=== PATIENT | female | born 1975 | race Caucasian/White ===

== ENCOUNTER 2021-05-15 09:25 | Outpatient (CLI) | payer BC, SELFPAY ==
[2021-05-15 10:20] LABS: Basophils Percent Auto 0.7 % (0.2-1.2); Eosinophils Absolute Auto 0.4 K/mm3 (0-0.3); Eosinophils Percent Auto 6.6 % (0-4.4); Hematocrit 38.5 % (37.0-47.0); Hemoglobin 12.5 g/dL (12.0-15.0); Immature Granulocyte Absolute 0.01 K/mm3 (0.00-0.031); Immature Granulocyte Percent A 0.2 % (0-0.5); Lymphocytes Absolute Auto 1.64 K/mm3 (0.9-3.2); Lymphocytes Percent Auto 27.9 % (18.3-44.2); Mean Corpuscular HGB Conc 32.5 g/dl (32-36); Mean Corpuscular Hemoglobin 29.5 pg (26-34); Mean Corpuscular Volume 90.8 fl (80-100); Mean Platelet Volume 9.5 fl (7.4-10.4); Monocytes Absolute Auto 0.5 K/mm3 (0.1-0.6); Neutrophils Absolute Auto 3.3 K/mm3 (1.3-6.7); Neutrophils Percent Auto 56.6 % (45.5-73.1); Platelet Count Result 236 k/mm3 (150-375); Red Blood Count 4.24 M/mm3 (4.2-5.4); Red Cell Distribution Width 13.4 % (11.5-14.5); White Blood Count 5.9 K/mm3 (4.5-10.0)
[2021-05-15 10:27] LABS: Alanine Aminotransferase 31 U/L (4-35); Albumin Level 4.2 g/dL (3.5-5.1); Alkaline Phosphatase 80 U/L (38-126); Anion Gap 8 mmol/L (8-16); Aspartate Amino Transferase 30 U/L (14-36); Bilirubin,Total 0.5 mg/dL (0.2-1.3); Blood Urea Nitrogen 11 mg/dL (7-17); Calcium 9.1 mg/dL (8.4-10.2); Carbon Dioxide 25 mmol/L (22-30); Chloride 106 mmol/L (98-107); Cholesterol 191 mg/dL (0-200); Estimated Glomerular Filt Rate > 60; Glucose 94 mg/dL (65-105); HDL Direct 42 mg/dL; Potassium 4.5 mmol/L (3.4-5.0); Sodium 139 mmol/L (137-145); Triglycerides 119 mg/dL (<150)
[2021-05-15 10:37] LABS: LDL Cholesterol Direct 116 mg/dL
[2021-05-15 11:37] LABS: Vitamin D 25 Hydroxy 33.5 ng/mL
== END 2021-05-15 09:26 | disposition home or self-care (01) ==
PROVIDERS: PCP Internal Medicine; Visit Provider Nurse Practitioner
DX: Z13.29 Encounter for screening for other suspected endocrine disorder (principal); Z13.220 Encounter for screening for lipoid disorders; E55.9 Vitamin D deficiency, unspecified
CPT/HCPCS: 36415; 80053; 80061; 82306; 85025

== ENCOUNTER 2021-07-16 17:23 | Outpatient (CLI) | payer BC, SELFPAY ==
--- NOTE | ~2021-07-16 | MM_ITS ---
EXAMINATION: MM screening keyona BI w janny HISTORY: Screening TECHNIQUE: Craniocaudal and mediolateral oblique 3-D tomosynthesis images were obtained and synthetic 2-D images were generated. CAD analysis was submitted and interpreted. COMPARISON: No prior mammogram is available for comparison at this institution. BREAST PARENCHYMAL COMPOSITION: The breasts are heterogeneously dense, which may obscure small masses . FINDINGS: There is no evidence of suspicious mass, calcification, or architectural distortion to sugg est malignancy in either breast. There has been no suspicious interval change. IMPRESSION: 1. No mammographic evidence of malignancy. 2. Recommend routine screening mammography in one year. BI-RADS Category 1: Negative Reviewed, dictated and finalized at location A.
== END 2021-07-16 17:24 | disposition home or self-care (01) ==
LOC: ANHIMG 17:25
PROVIDERS: PCP Internal Medicine; Visit Provider Nurse Practitioner
DX: Z12.31 Encounter for screening mammogram for malignant neoplasm of breast (principal)
CPT/HCPCS: 77063; 77067

== ENCOUNTER 2022-06-19 11:20 | Outpatient (CLI) | payer OTHER, SELFPAY ==
--- NOTE | ~2022-06-19 | MMUS_ITS ---
EXAMINATION: MM diagnostic keyona BI w janny, US breast LT limited HISTORY: Palpable left breast abnormality. TECHNIQUE: Additional 3-D tomosynthesis images of the breasts were performed and synthetic 2-D images were generated. CAD analysis was submitted and interpreted. High resolution Limited left breast ultr asound was performed. COMPARISON: 07/16/2021 BREAST PARENCHYMAL COMPOSITION: The breasts are heterogenously dense, which may obscure small masses FINDINGS: MAMMOGRAPHIC FINDINGS: There are no suspicious masses, calcifications or architectural distortion in either breast to sugges t malignancy. ULTRASOUND: Limited left breast ultrasound: Normal heterogeneous echotexture without focal solid or cystic mass. IMPRESSION: 1. No evidence for malignancy in either breast. 2. Routine yearly screening mammogram and regular clinical breast examination are recommended. BI-RADS Category 1: Negative Reviewed, dictated and finalized at location A. IMPRESSION: 1. No evidence for malignancy in either breast. 2. Routine yearly screening mammogram and regular clinical breast examination a re recommended. BI-RADS Category 1: Negative
== END 2022-06-19 11:21 | disposition home or self-care (01) ==
PROVIDERS: PCP Internal Medicine; Visit Provider Obstetrics & Gynecology Gynecology
DX: N63.20 Unspecified lump in the left breast, unspecified quadrant (principal)
CPT/HCPCS: 76642; 77062; 77066; G0279

== ENCOUNTER 2024-06-24 15:03 | Outpatient (CLI) | payer OTHER, SELFPAY ==
--- NOTE | ~2024-06-24 | MM_ITS ---
EXAMINATION: MM screening keyona BI w janny HISTORY: Screening TECHNIQUE: Craniocaudal and mediolateral oblique 3-D tomosynthesis images were obtained and synthetic 2-D images were generated. CAD analysis was submitted and interpreted. COMPARISON: Comparison to multiple prior studies sequentially, with oldest reviewed study dated 07/16. BREAST PARENCHYMAL COMPOSITION:Not dense: There are scattered areas of fibroglandular density. FINDINGS: There is no evidence of suspicious mass, calcification, or architectural distortion to sugg est malignancy in either breast. There has been no suspicious interval change. IMPRESSION: 1. No mammographic evidence of malignancy. 2. Recommend routine screening mammography in one year. BI-RADS Category 1: Negative Reviewed, dictated and finalized at location B.
== END 2024-06-24 15:04 | disposition home or self-care (01) ==
LOC: ANHIMG 15:05
PROVIDERS: PCP Internal Medicine; Visit Provider Advanced Practice Midwife
DX: Z12.31 Encounter for screening mammogram for malignant neoplasm of breast (principal)
CPT/HCPCS: 77063; 77067

== ENCOUNTER 2025-05-02 11:11 | Outpatient (CLI) | payer OTHER, SELFPAY ==
--- NOTE | ~2025-05-02 | XR_ITS ---
Right Knee Technique: AP and lateral views were obtained. Clinical History: Pain Findings: No fracture or dislocation is seen. Osseous alignment is anatomic. Joint spaces are preserv ed without degenerative or erosive change. Soft tissues are unremarkable. No joint effusion is seen. Impression: Unremarkable right knee radiographs. Reviewed, dictated and finalized at location . Impression: Unremarkable right knee radiographs.
== END 2025-05-02 11:12 | disposition home or self-care (01) ==
LOC: GOSHIMG 11:11
PROVIDERS: PCP Nurse Practitioner; Visit Provider Nurse Practitioner
DX: M25.569 Pain in unspecified knee (principal); W19.XXXA Unspecified fall, initial encounter
CPT/HCPCS: 73560

== ENCOUNTER 2025-05-15 09:22 | Outpatient (CLI) | payer OTHER, SELFPAY ==
--- NOTE | ~2025-05-15 | MR_ITS ---
EXAMINATION: MR knee RT wo con DATE: 05/15/2025 10:08 INDICATION: Right knee pain post fall TECHNIQUE: Magnetic resonance imaging (MRI) of the right knee was performed without intravenous contr ast. Sequences included coronal PD-weighted FSE, coronal PD-weighted FS FSE, sagittal T2-weighted FS E, sagittal PD-weighted FS FSE and axial PD weighted fat saturated FSE. COMPARISON: None. FINDINGS: Medial compartment: There is medial extrusion of the medial meniscal body. There is increased signal extending to the sup erior and inferior articular surfaces of the anterior two thirds of the posterior horn of the medial meniscus suspicious for a radial tear. There is additional increased signal contacting the inferior a rticular surface at the junction of the body and posterior horn consistent with a longitudinal tear p nga. Small region of partial-thickness chondral ulceration with mild underlying subarticular edema-l romel signal change along the medial margin of the medial tibial plateau. Small marginal osteophytes ar e present. Lateral compartment: Lateral meniscus is normal. Articular cartilage is normal. Patellofemoral compartment: There is deep chondral ulceration involving the caudal two thirds of the lateral patellar facet and t he superolateral aspect of the lateral trochlea. Less severe partial thickness chondral ulceration bu t with deep fissuring and mild subarticular edema-like signal change at the lateral aspect of the med ial patellar facet. Partial-thickness chondral ulceration and deep fissuring with minimal underlying cortical irregularity at the inferior aspect of the medial trochlea. Ligaments and tendons: Anterior and posterior cruciate ligaments are normal. The medial collateral ligament and fibular janel ateral ligament complex are normal. The extensor mechanism is normal. The visualized medial and later al hamstring tendons as well as the iliotibial band are normal. Fluid: Small knee joint effusion at the suprapatellar pouch. No loose osteochondral bodies identified. Osseous/other: Bone alignment is normal. No fracture or pathologic marrow replacing process. IMPRESSION: 1. Complex tear of the posterior horn and medial extruded body of the medial meniscus. 2. Moderate osteoarthritis with moderate and high-grade chondromalacia in the patellofemoral compartm ent and mild osteoarthritis in the medial compartment with small regions of high-grade chondral malac ia along the medial rim of the medial tibial plateau. 2. Small right knee joint effusion. Reviewed, dictated and finalized at location B. IMPRESSION: 1. Complex tear of the posterior horn and medial extruded body of the medial me niscus. 2. Moderate osteoarthritis with moderate and high-grade chondromalacia in the p atellofemoral compartment and mild osteoarthritis in the medial compartment wit h small regions of high-grade chondral malacia along the medial rim of the medi al tibial plateau. 2. Small right knee joint effusion.
== END 2025-05-15 09:23 | disposition home or self-care (01) ==
LOC: GOSHIMG 09:22
PROVIDERS: PCP Nurse Practitioner; Visit Provider Nurse Practitioner
DX: S83.231A Complex tear of medial meniscus, current injury, right knee, initial encounter (principal); W19.XXXA Unspecified fall, initial encounter; M17.11 Unilateral primary osteoarthritis, right knee; M22.41 Chondromalacia patellae, right knee; M25.461 Effusion, right knee
CPT/HCPCS: 73721

== ENCOUNTER 2025-06-02 13:59 | Outpatient (CLI) | payer OTHER, SELFPAY ==
--- NOTE | ~2025-06-02 | US_ITS ---
EXAMINATION:US venous doppler LE BI INDICATION:Lymphedema TECHNIQUE: Multiple grayscale, color flow and Doppler images of the right and left lower extremity de ep venous systems were obtained and reviewed. COMPARISON:No prior studies for comparison. FINDINGS: The common femoral, superficial femoral and popliteal veins demonstrate normal respiratory variation, augmentation and compressibility. Color flow is also seen within the posterior tibial, pe roneal, greater saphenous and profunda veins. IMPRESSION: 1: No lower extremity deep venous thrombosis. Reviewed, dictated and finalized at location B.
== END 2025-06-02 14:00 | disposition home or self-care (01) ==
LOC: GOSHIMG 13:59
PROVIDERS: PCP Orthopaedic Surgery; Visit Provider Orthopaedic Surgery
DX: M79.89 Other specified soft tissue disorders (principal)
CPT/HCPCS: 93970

== ENCOUNTER 2025-06-13 10:33 | Outpatient (CLI) | payer OTHER, SELFPAY ==
--- NOTE | 2025-06-13 10:40 | ECG_ITS ---
Test Date: 2025-06-13 11:09:13 Measurements Intervals [place] Rate: 74 P: 36 ND: 142 QRS: -8 QRSD: 121 T: -8 QT: 384 QTc: 426 Interpretive Statements SINUS RHYTHM RIGHT VENTRICULAR CONDUCTION DELAY POSSIBLE ANTERIOR MYOCARDIAL INFARCTION OF INDETERMINATE AGE Electronically Signed On 06-13-2025 17:28:48 CDT by Martin Issa D.O
--- OUTSIDE RECORDS SUMMARY | 2025-06-13 10:48 | XMS_ITS | Clinical Summary ---
Author Organization [facility] Address [address] [place] [address] Phone Care Team Providers Care Horse Trekking Guide Name Role Phone ZenaidaayrySegundo trimble DO Primary Care Provider Allergies No known active allergies Medications losartan-hydroch lorothiazide (HYZAAR) 50-12.5 MG Tablet Take 1 Tablet by mouth daily. 08/21/2024 Active Active Problems No known active problems Social History Tobacco Use Types Packs/Day Years Used Date Smoking Tobacco: Never Smokeless Tobacco: Never Alcohol Use Standard Drinks/Week Comments Not Currently 0 (1 standard drink = 0.6 oz pur e alcohol) Sexually Active Control Partners Comments Not Currently Comments No Sex and Gender Information Value Date Recorded Sex Assigned at Not on file Legal Sex Female 8:38 PM CDT Gender Identity Not on file Sexual Orientation Not on file Last Filed Vital Signs Vital Sign Reading Time Taken Comments Blood Pressure 124/82 09/25/2024 8:49 AM RESIDENTIAL DIRECT SUPPORT PROFESSIONAL Pulse 93 09/25/2024 8:49 AM RESIDENTIAL DIRECT SUPPORT PROFESSIONAL Temperature 37.3 C (99.1 F) 09/25/2024 8:49 AM RESIDENTIAL DIRECT SUPPORT PROFESSIONAL Respiratory Rate 14 09/25/2024 8:49 AM RESIDENTIAL DIRECT SUPPORT PROFESSIONAL Oxygen Saturation 98% 09/25/2024 8:49 AM RESIDENTIAL DIRECT SUPPORT PROFESSIONAL Inhaled Oxygen Concentration - - Weight - - Height - - Body Mass Index - - Plan of Treatment Health Maintenance Due Date Last Done Comments Hepatitis C Virus (HCV) Screening 1975 TdaP Immunization 1975 Hepatitis B Immunization (1 of 3 - 19+ 3-dose series) 1994 Pap Smear 1996 Cervical Cancer Screening (CCS) 2005 HPV/Cotest 2005 Cologuard 2020 Colonoscopy 2020 Colorectal Cancer Screening 2020 Immunochemical Fecal Occult Blood 2020 Mammogram 08/04/2023 08/04/2022, 11/10/2017, 11/10/2017 SARS-COV-2 Immunization ( - season) 2024 05/27/2022, 05/30/2021, 05/09/2021 Pneumococcal Immunization (5 0+ years) (1 of 1 - PCV) 2025 Zoster Immunization (1 of 2) 2025 Influenza Immunization (#1) 2025 Respiratory Syncytial Virus (RSV) Immunization (Adult) (1 - 1-dose 75+ series) 2050 Discussion re Starting/Frequency of Mammograms Discontinued 08/04/2022, 11/10/2017 Human Papillomavirus (HPV) Immunization Aged Out No longer eligible based on patient's age to complete this topic Meningococcal Immunization (ACWY) Aged Out No longer eligible based on patient's age to complete this topic Rotavirus Immunization Aged Out No lo nger eligible based on patient's age to complete this topic Insurance [employer] Care Teams Horse Trekking Guide Relationship Specialty Start Date End Date Segundo Whatley DO [address] [place] [address] [place] [address] PCP - General Internal Medicine 10/19/21
--- OUTSIDE RECORDS SUMMARY | 2025-06-13 10:48 | XMS_ITS | Clinical Summary ---
Author Organization [facility] Address [facility] [place] [address] Care Team Providers Care Director Wholesale Name Role Phone Vinny Vanessa S DO Primary Care Provider Social History Tobacco Use Types Packs/Day Years Used Date Smoking Tobacco: Never Assessed Comments Unknown Sex and Gender Information Value Date Recorded Sex Assigned at Not on file Legal Sex Female 8:16 PM CDT Gender Identity Not on file Sexual Orientation Not on file Last Filed Vital Signs Vital Sign Reading Time Taken Comments Blood Pressure 124/78 07/12/2018 2:56 PM CDT Pulse 79 07/12/2018 2:56 PM CDT Temperature - - Respiratory Rate - - Oxygen Saturation - - Inhaled Oxygen Concentration - - Weight 127.5 kg (281 lb 2.1 oz) 07/12/2018 2:56 PM CDT Height 162.6 cm (5' 4) 07/12/2018 2:56 PM CDT Body Mass Index 48.26 07/12/2018 2:56 PM CDT Plan of Treatment Health Maintenance Due Date Last Done Comments Cervical Cancer Screening Pa p Smear (Age 30 to 64) Every 3 Years 1975 Colorectal Cancer Screening Colonoscopy (10 Years) 1975 Annual Physical 1978 Hepatitis C 1993 DTaP, Tdap and Td Vaccines ( 1 - Tdap) 1994 Hepatitis B Vaccines (1 of 3 - 19+ 3-dose series) 1994 Cervical Cancer Screening Pa p with HPV Testing (Age 30 to 64) Every 5 Years 2005 Cervical Cancer Screening with HPV 2005 Mammogram Screening 2015 COVID-19 Vaccine ( - 2023-2 5 season) 2024 Pneumococcal Vaccine: 50+ Ye ars (1 of 1 - PCV) 2025 Zoster Vaccines (1 of 2) 2025 Meningococcal B Vaccine Aged Out No l onger eligible based on patient's age to complete this topic Meningococcal Vaccine Aged Out No maciej shlomo eligible based on patient's age to complete this topic RSV Immunizations Under 20 Months Aged Out No longer eligible based on patient's age to complete this topic Care Teams Director Wholesale Relationship Specialty Start Date End Date Vanessa Casillas DO [address] [place] [address] PCP - General FAMILY PRACTICE 09/02/21
--- OUTSIDE RECORDS SUMMARY | 2025-06-13 10:48 | XMS_ITS | Clinical Summary ---
Author Organization [facility] [address] [facility] lt Address [address] [place] [address] Care Team Providers Care Head Strength And Conditioning Coach Name Role Phone Rikki Fernández Primary Care Provider Unavailabl e Allergies No known active allergies Medications No known medications Active Problems No known active problems Encounters Date Type Department Care Team Description 05/03/2025 8:50 AM CDT [address] [address] from Last 3 Months Immunizations Immunization Administration Dates Next Due Influenza, Unspecified 11/17/2016(Deferred: Drea ent Refused) Surgical History Surgery Date Site/Laterality Comments LAPAROSCOPIC CHOLECYSTECTOMY 11/16/1996 - 11/15/1997 TONSILLECTOMY 11/16/1982 - 11/15/1983 TUBAL LIGATION 11/16/1999 - 11/15/2000 Medical History Medical History Date Comments Lymphedema of left leg 1989 unknown e tiology Family History Medical History Relation Name Comments Hypertension Maternal Grandfather Heart attack Maternal Grandmother COD Hypertension Maternal Grandmother Hypertension Mother Osteoporosis Mother Parkinsonism Mother's Brother Heart attack Paternal Grandfather COD at age 80 Hypertension Paternal Grandfather Heart failure Paternal Grandmother Hypertension Paternal Grandmother Relation Name Status Comments Maternal Grandfather Maternal Grandmother Mother Mother's Brother Paternal Grandfather Paternal Grandmother Social History Tobacco Use Types Packs/Day Years Used Date Smoking Tobacco: Never Smokeless Tobacco: Never Tobacco Cessation:Counseling Given: Not Answered Alcohol Use Standard Drinks/Week Comments Yes 0 (1 standard drink = 0.6 oz pur e alcohol) Comments No Sex and Gender Information Value Date Recorded Sex Assigned at Not on file Legal Sex Female 7:13 PM PASTRYCOOK Gender Identity Not on file Sexual Orientation Not on file 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 file Not on file Not on file Obstetrics History Para Term AB IAB SAB Ectopic Multiple Livin g Live Births 2 2 2 0 0 0 0 0 0 2 2 Date Outcome GA Total Labor Labor/2nd/3rd Weight Sex Type Anes PTL Marlene A1 A5 Name Clin Term Term Last Filed Vital Signs Vital Sign Reading Time Taken Comments Blood Pressure 140/80 07/16/2022 1:23 PM CDT Pulse 91 07/16/2022 1:23 PM CDT Temperature 36.1 C (96.9 F) 07/16/2022 1:23 PM CDT Respiratory Rate 16 11/17/2017 2:47 PM PASTRYCOOK Oxygen Saturation 96% 07/16/2022 1:23 PM CDT Inhaled Oxygen Concentration - - Weight 136.9 kg (301 lb 12.8 oz) 07/16/2022 1:23 PM CDT Height 162.6 cm (5' 4) 07/16/2022 1:23 PM CDT Body Mass Index 51.8 07/16/2022 1:23 PM CDT Plan of Treatment Health Maintenance Due Date Last Done Comments Colon Cancer Screening-Colonoscopy 1975 Hepatitis C Screening 1975 DTaP/Tdap/Td Vaccine (1 - Tdap) 1986 Hepatitis B Screening 1993 Breast Cancer Screening-Mammogram 11/10/2018 11/10/2017 Cervical Cancer Screening 11/10/2018 11/10/2017 Regular Well Visit/Exam 18-64 11/10/2018 11/10/2017 Depression Screening 01/01/2019 01/01/2018 Covid-19 Vaccine (4 2023-2 5 season) 2024 05/27/2022, 05/30/2021, 05/09/2021 Zoster Vaccine (1 of 2) 2025 Influenza Vaccine (#1) 2025 Pneumococcal vaccine <65 Aged Out No longer eligible based on patient's age to complete this topic Procedures Procedure Name Priority Date/Time Associated Diagnosis Comments EGFR Routine 05/03/2025 8:59 AM CDT DIFFERENTIAL AUTO Routine 05/03/2025 8:5 9 AM CDT VITAMIN D 25 HYDROXY Routine 05/03/2025 8:59 AM CDT COMPREHENSIVE METABOLIC PANEL Routine 05/03/2025 8:59 AM CDT LIPID PANEL Routine 05/03/2025 8:59 AM CDT CBC WITH AUTO DIFFERENTIAL Routine 05/03/2025 8:59 AM CDT THINPREP IMAGING PAP AND HPV MRNA E6/E7 REFLEX HPV 16,18/45 Routine 11/10/2017 2:12 PM PASTRYCOOK SCREENING MAMMOGRAM 2D BILATERAL Schedule Routine, Read Routine (OP Routine) 11/10/2017 11:30 AM PASTRYCOOK Screening for malignant neoplasm of breast from Last 3 Months or Most Recently Relevant to Health Maintenance Results * eGFR (05/03/2025 8:59 AM CDT) eGFR >90 >=60 mL/min/1. 73 m2 Comment: Interpretive Data Reference Interval Normal >/= 90 mL/min/1.73m2 Mildly decreased* 60 - 89 mL/min/1.73m2 Mildly to moderately decreased 45 - 59 mL/min/1.73m2 Moderately to severely decreased 30 - 44 mL/min/1.73m2 Severely decreased 15 - 29 mL/min/1.73m2 Kidney Failure < 15 mL/min/1.73m2 *Relative to young adult level Estimated glomerular filtration rate is determined by the 2020 CKD-EPI equation recommended by the National Kidney Foundation (A Unifying Approach to GFR Estimation: Recommendations of the NKF-ASK Task Force on Reassessing the Inclusion of Race in Diagnosing Kidney Disease, JASN 202). The CKD-EPI equation should not be used for patients with unstable renal function and has not been validated in children and those over 70. Current interpretive data was last reviewed 2021. Blood 05/03/2025 8:59 AM CDT 05/03/2025 10:07 AM CDT us Chinyere Marques LOOP PULLER LAB BLOOD ORDERABLES Final R esult [facility] (NUNN) [address] [facility] Department [place] [address] * Differential, auto (05/03/2025 8:59 AM CDT) Neutrophil abs 4.41 1.50 - 6.50 K/cumm Imm gran abs 0.03 0.00 - 0.10 K/cumm [facility] ([facility]) Lymphocyte abs 2.28 0.80 - 3.30 K/cumm [facility] ([facility]) Monocyte abs 0.63 0.20 - 0.80 K/cumm [facility] ([facility]) Eosinophil abs 0.33 0.00 - 0.50 K/cumm [facility] ([facility]) Basophil abs 0.04 0.00 - 0.10 K/cumm [facility] ([facility]) Neutrophil pct 57.1 % [facility] ([facility]) Comment: Interpretive Data Percent cell count reference ranges are not reported, since discordance with absolute values may lead to misinterpretation of CBC data. Current Interpretive Data was last revised on 2018. Imm gran pct 0.4 % [facility] ([facility]) Comment: Interpretive Data Percent cell count reference ranges are not reported, since discordance with absolute values may lead to misinterpretation of CBC data. Current Interpretive Data was last revised on 2018. Lymphocyte pct 29.5 % [facility] ([facility]) Comment: Interpretive Data Percent cell count reference ranges are not reported, since discordance with absolute values may lead to misinterpretation of CBC data. Current Interpretive Data was last revised on 2018. Monocyte pct 8.2 % [facility] ([facility]) Comment: Interpretive Data Percent cell count reference ranges are not reported, since discordance with absolute values may lead to misinterpretation of CBC data. Current Interpretive Data was last revised on 2018. Eosinophil pct 4.3 % [facility] ([facility]) Comment: Interpretive Data Percent cell count reference ranges are not reported, since discordance with absolute values may lead to misinterpretation of CBC data. Current Interpretive Data was last revised on 2018. Basophil pct 0.5 % [facility] ([facility]) Comment: Interpretive Data Percent cell count reference ranges are not reported, since discordance with absolute values may lead to misinterpretation of CBC data. Current Interpretive Data was last revised on 2018. Blood 05/03/2025 8:59 AM CDT 05/03/2025 10:07 AM CDT us Chinyere Marques LOOP PULLER LAB BLOOD ORDERABLES Final R esult [facility] ([facility]) 1 [facility] Department [place] [address] * (ABNORMAL) CBC with auto differential (05/03/2025 8:59 AM CDT) WBC 7.72 3.80 - 9.90 K/cumm Hgb 11.7(L) 11.9 - 15.5 g/dL [facility] Hct 36.6 35.6 - 45.5 % [facility] ([facility] Plt 261 150 - 400 K/cumm [facility] ([facility]) MPV 9.7 9.1 - 12.3 fL [facility] ([facility] RBC 4.07 3.90 - 5.20 M/cumm [facility] ([facility]) MCV 89.9 81.3 - 96.4 fL [facility] ([facility] MCH 28.7 27.1 - 33.3 pg [facility] ([facility] MCHC 32.0(L) 32.3 - 35.7 g/dL [facility] ([facility]) RDW CV 13.6 11.1 - 14.9 % [facility] ([facility] RDW SD 44.5 35.7 - 48.1 fL [facility] ([facility] NRBC abs 0.00 0.00 - 0.01 K/cumm [facility] ([facility]) Blood 05/03/2025 8:59 AM CDT 05/03/2025 10:07 AM CDT us Chinyere Marques NP LAB BLOOD ORDERABLES Final R esult [facility] (JADEN) 1 [facility] Department [place] [address] * Vitamin D 25 hydroxy (05/03/2025 8:59 AM CDT) Vitamin D 25-OH 30 30 - 80 ng/mL Blood 05/03/2025 8:59 AM CDT 05/03/2025 10:07 AM CDT Chinyere Marques NP LAB BLOOD ORDERABLES Final R esult [facility] (NUNN) 1 [facility] Department [place] [address] * Lipid panel (05/03/2025 8:59 AM CDT) Cholesterol 166 30 - 199 mg/dL Comment: Interpretive Data Ages < or = 19 years Acceptable: <170 mg/dL Borderline high: 170-199 mg/dL High: >or= 200 mg/dL Ages > or = 20 years Desirable: <200 mg/dL Borderline high: 200-239 mg/dL High: >or= 240 mg/dL Literature References: 1. Expert Panel on Integrated Guidelines for Cardiovascular Health and Risk Reduction in Children and Adolescents. Pediatrics 2011;128:S213 2. NCEP Expert Panel. Circulation 2004;110:227 Current Interpretive Data was last revised on 2018. Triglycerides 97 <=149 mg/dL [facility] (JADEN) Comment: Interpretive Data Ages < or = 9 years Acceptable: <75 mg/dL Borderline high: 75-99 mg/dL High: >or= 100 mg/dL Ages 10 to 20 years Acceptable: <90 mg/dL Borderline high: 90-129 mg/dL High: >or= 130 mg/dL Ages > or = 20 years Desirable: <150 mg/dL Borderline high: 150-199 mg/dL High: 200-499 mg/dL Very high: >or= 499 mg/dL Literature References: 1. Expert Panel on Integrated Guidelines for Cardiovascular Health and Risk Reduction in Children and Adolescents. Pediatrics 2011;128:S213 2. NCEP Expert Panel. Circulation 2004;110:227 Current Interpretive Data was last revised on 2018. HDL 46 >=40 mg/dL [facility] (JADEN) Comment: Interpretive Data Ages < or = 19 years Acceptable: >45 mg/dL Borderline low: 40-45 mg/dL Low: <40 mg/dL Ages > or = 20 years Desirable: >or= 60 mg/dL Low: <40 mg/dL Literature References: 1. Expert Panel on Integrated Guidelines for Cardiovascular Health and Risk Reduction in Children and Adolescents. Pediatrics 2011;128:S213 2. NCEP Expert Panel. Circulation 2004;110:227 Current Interpretive Data was last revised on 2018. LDL, calculated 102 <=129 mg/dL [facility] (JADEN) Comment: Interpretive Data Ages < or = 19 years Acceptable: <110 mg/dL Borderline high: 110-129 mg/dL High: >or= 130 mg/dL Ages > or = 20 years Optimal: <100 mg/dL Near optimal: 100-129 mg/dL Borderline high: 130-159 mg/dL High: >160 mg/dL Calculated using the Dani LDL-C estimating equation. This equation was implemented on 2024. Prior to this date LDL-C was estimated using the Friedewald equation. Literature References: 1. Expert Panel on Integrated Guidelines for Cardiovascular Health and Risk Reduction in Children and Adolescents. Pediatrics 2011;128:S213 2. NCEP Expert Panel. Circulation 2004;110:227 3. Dani Phillips al. ENEDELIA Cardiol. 2019March 16;5(5):540-548. doi: 10.1001/jamacardio.2020.0013 Current Interpretive Data was last revised on 2024. Non-HDL Cholesterol 120 mg/dL [facility] (JADEN) Comment: Interpretive Data Ages < or = 19 years Acceptable: <120 mg/dL Borderline high: 120-144 mg/dL High: >145 mg/dL Ages > or = 20 years When triglycerides are >200 mg/dL, Non-HDL cholesterol is a secondary target of therapy with treatment goals that are 30 mg/dL greater than the LDL cholesterol target. Literature References: 1. Expert Panel on Integrated Guidelines for Cardiovascular Health and Risk Reduction in Children and Adolescents. Pediatrics 2011;128:S213 2. NCEP Expert Panel. Circulation 2004;110:227 Current Interpretive Data was last revised on 2018. Chol/HDL ratio 4 [facility] ([facility]) Blood 05/03/2025 8:59 AM CDT 05/03/2025 10:07 AM CDT us Chinyere Marques LOOP PULLER LAB BLOOD ORDERABLES Final R esult [facility] ([facility]) 1 [facility] Department [place] [address] * (ABNORMAL) Comprehensive metabolic panel (05/03/2025 8:59 AM CDT) Sodium 141 135 - 145 mmol/L Potassium, pl 3.7 3.3 - 4.9 mmol/L [facility] ([facility]) Chloride 102 97 - 110 mmol/L [facility] ([facility]) CO2 27 22 - 32 mmol/L [facility] ([facility]) Anion gap 13 2 - 15 mmol/L [facility] ([facility]) BUN 12 6 - 25 mg/dL [facility] ([facility]) Creatinine 0.59(L) 0.60 - 1.10 mg/dL [facility] ([facility]) Glucose 102 70 - 199 mg/dL [facility] ([facility]) Comment: Interpretive Data Fasting glucose >/= 126 mg/dl is diagnostic for diabetes. Fasting is defined as no caloric intake for at least 8 hours. Fasting glucose between 100 mg/dl to 125 mg/dl is diagnostic of prediabetes. In a patient with classic symptoms of hyperglycemia or hyperglycemic crisis, a random glucose >/= 200 mg/dl is diagnostic for diabetes. In the absence of unequivocal hyperglycemia, results should be confirmed by repeat testing. The classification and Diagnosis of Diabetes Diabetes Care 2021; 46: S19-S40. Current interpretive data was last revised 2022. Calcium 8.6 8.5 - 10.3 mg/dL [facility] ([facility]) Bilirubin, total 0.3 0.1 - 1.2 mg/dL [facility] ([facility]) Protein, pl 6.7 6.5 - 8.5 g/dL [facility] ([facility]) Albumin 3.7 3.5 - 5.0 g/dL [facility] ([facility]) Alk phos 81 40 - 130 Units/L [facility] ([facility]) ALT 23 7 - 45 Units/L [facility] ([facility]) AST 19 10 - 45 Units/L [facility] ([facility]) Blood 05/03/2025 8:59 AM CDT 05/03/2025 10:07 AM CDT us Chinyere Marques LOOP PULLER LAB BLOOD ORDERABLES Final R esult [facility] ([facility]) 1 [facility] Department [place] [address] * ThinPrep Imaging Pap and HPV mRNA E6/E7 Reflex HPV 16,18/45 (11/10/2017 2:12 PM PASTRYCOOK) Report status CANCELED [facility] Comment:Result canceled by [facility] CLINICAL INFORMATION: [facility] Comment:Information not prov ided LMP NONE GIVEN [facility] Previous Pap NONE GIVEN [facility] Prev. Bx NONE GIVEN [facility] SOURCE: [facility] Comment:Cervix, Endocervix Pap, specimen adequacy [facility] Comment: Satisfactory for evaluation. Endocervical/transformation zone component present. Age and/or menstrual status not provided Pap, general categorization [facility]CELED [facility] Comment:Result canceled by [facility] HPV interp [facility] Comment:Negative for intraep ithelial lesion or malignancy. Infection: CANCELED [facility] Comment:Result canceled by t ancillary COMMENTS [facility] Comment: This Pap test has been evaluated with computer assisted technology. Curriculum And Instruction Specialist [facility] - Comment: PCM, CT(ASCP) CT screening location: [place] [address] [place] [address] Review scheduler CANCELED [facility] Comment:Result canceled by t ancillary Pathologist CANCELED [facility] Comment:Result canceled by [facility] Human papillomavirus RNA, High Risk E6/E7 Not Detected Not Detected [facility] Comment: This test was performed using the APTIMA HPV Assay ([employer] This assay detects E6/E7 viral messenger RNA (mRNA) from 14 high-risk HPV types (16,18,31,33,35,39,45,51,52,56,58,59,66,68). 11/10/2017 2:12 PM PASTRYCOOK 11/11/2017 2:45 AM PASTRYCOOK Narrative Resulting Agency Comment Performing Organization Information: Site ID: Name: [facility] Address: [address] [place] [address] Director: Jasbir Montgomery MD Melina Mcleod MD LAB CYTOLOGY ORDERA BLES Final Result [facility] [place], [place] * Screening Mammogram 2D Bilateral (11/10/2017 11:30 AM PASTRYCOOK) Anatomical Region Laterality Modality Breast Bilateral Mammography Narrative 11/12/2017 4:09 PM PASTRYCOOK BILATERAL DIGITAL MAMMOGRAPHY The present examination has been compared to prior imaging studies dated 05/18/2012 and 05/14/2012 Mammogram Findings CAD (computer-aided detection) software was utilized. The breasts are heterogeneously dense. This may lower the sensitivity of mammography. Bilateral low dose mammography reveals nodular densities which are small in the upper inner left breast. Spot compression views in the CC and MLO projections are recommended for further evaluation. If persistent then ultrasound is also recommended. The rest of both breasts are normal. In the right breast, no mass, significant calcifications or other abnormalities are seen. Impression Finding in the left breast requires additional evaluation. Spot compression is recommended. Additional projections are recommended. The patient will be recalled for additional views of this area and a supplemental report generated when these are obtained. An ultrasound exam is recommended. Asymmetric densities in the upper inner left breast. BI-RADS Category 0: Incomplete: Need Additional Imaging Evaluation Melina Mcleod MD IMG MAMMO PROCEDURE S Final Result from Last 3 Months or Most Recently Relevant to Health Maintenance Insurance [facility] CHOICE PLUS [employer] [facility] CHOICE PLUS Care Teams Head Strength And Conditioning Coach Relationship Specialty Start Date End Date Rikki Fernández PCP - General 12/01/17
--- OUTSIDE RECORDS SUMMARY | 2025-06-13 10:48 | XMS_ITS | Referral Summary ---
Author Organization [facility] 155 [facility] lto Address [address] [place] [address] Care Team Providers Care Acquisition Professional Name Role Phone Rikki Fernández Primary Care Provider Unavailabl e Encounters Date Type Department Care Team Description 05/03/2025 8:50 AM CDT Lab [address] [address] from Last 3 Months Allergies No known active allergies Medications No known medications Active Problems No known active problems Immunizations Immunization Administration Dates Next Due Influenza, Unspecified 11/17/2016(Deferred: Drea ent Refused) Social History Tobacco Use Types Packs/Day Years Used Date Smoking Tobacco: Never Smokeless Tobacco: Never Tobacco Cessation:Counseling Given: Not Answered Alcohol Use Standard Drinks/Week Comments Yes 0 (1 standard drink = 0.6 oz pur e alcohol) Comments No Sex and Gender Information Value Date Recorded Sex Assigned at Not on file Legal Sex Female 7:13 PM CEREAL POPPER Gender Identity Not on file Sexual Orientation Not on file 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 Not on file Not on file Last Filed Vital Signs Vital Sign Reading Time Taken Comments Blood Pressure 140/80 07/16/2022 1:23 PM CDT Pulse 91 07/16/2022 1:23 PM CDT Temperature 36.1 C (96.9 F) 07/16/2022 1:23 PM CDT Respiratory Rate 16 11/17/2017 2:47 PM CEREAL POPPER Oxygen Saturation 96% 07/16/2022 1:23 PM CDT Inhaled Oxygen Concentration - - Weight 136.9 kg (301 lb 12.8 oz) 07/16/2022 1:23 PM CDT Height 162.6 cm (5' 4) 07/16/2022 1:23 PM CDT Body Mass Index 51.8 07/16/2022 1:23 PM CDT Plan of Treatment Not on file Procedures Procedure Name Priority Date/Time Associated Diagnosis [...] REFLEX HPV 16,18/45 Routine 11/10/2017 2:12 PM CEREAL POPPER SCREENING MAMMOGRAM 2D BILATERAL Schedule Routine, Read Routine (OP Routine) 11/10/2017 11:30 AM CEREAL POPPER Screening for malignant neoplasm of breast from [...] of Race in Diagnosing Kidney Disease, JASN 2020). The CKD-EPI equation should not be used for patients with unstable renal function and has not been validated in children and those over 70. Current interpretive data was last reviewed 2021. Blood 05/03/2025 8:59 AM CDT 05/03/2025 10:07 AM CDT us Chinyere Marques NP LAB BLOOD ORDERABLES Final R esult [facility] ([place]) 1 [facility] Department [place] [address] * Differential, auto (05/03/2025 8:59 AM CDT) Neutrophil abs 4.41 1.50 - 6.50 K/cumm Imm gran abs 0.03 0.00 - 0.10 K/cumm [facility] ([place]) Lymphocyte abs 2.28 0.80 - 3.30 K/cumm [facility] ([place]) Monocyte abs 0.63 0.20 - 0.80 K/cumm [facility] ([place]) Eosinophil abs 0.33 0.00 - 0.50 K/cumm [facility] ([place]) Basophil abs 0.04 0.00 - 0.10 K/cumm [facility] ([place]) Neutrophil pct 57.1 % [facility] ([place]) Comment: Interpretive Data Percent cell count reference ranges are not reported, since discordance with absolute values may lead to misinterpretation of CBC data. Current Interpretive Data was last revised on 2018. Imm gran pct 0.4 % [facility] ([place]) Comment: Interpretive Data Percent cell count reference ranges are not reported, since discordance with absolute values may lead to misinterpretation of CBC data. Current Interpretive Data was last revised on 2018. Lymphocyte pct 29.5 % [facility] ([place]) Comment: Interpretive Data Percent cell count reference ranges are not reported, since discordance with absolute values may lead to misinterpretation of CBC data. Current Interpretive Data was last revised on 2018. Monocyte pct 8.2 % [facility] ([place]) Comment: Interpretive Data Percent cell count reference [...] 05/03/2025 10:07 AM CDT us Chinyere Marques TAN ROOM SUPERVISOR LAB BLOOD ORDERABLES Final R esult [facility] ([place]) 1 [facility] Department [place] [address] * (ABNORMAL) CBC with auto differential (05/03/2025 8:59 AM CDT) WBC 7.72 3.80 - 9.90 K/cumm Hgb 11.7(L) 11.9 - 15.5 g/dL [facility] ([place]) Hct 36.6 35.6 - 45.5 % [facility] ([place]) Plt 261 150 - 400 K/cumm [facility] ([place]) MPV 9.7 9.1 - 12.3 fL [facility] ([place]) RBC 4.07 3.90 - 5.20 M/cumm [facility] ([place]) MCV 89.9 81.3 - 96.4 fL [facility] ([place]) MCH 28.7 27.1 - 33.3 pg [facility] ([place]) MCHC 32.0(L) 32.3 - 35.7 g/dL [facility] ([place]) RDW CV 13.6 11.1 - 14.9 % [facility] ([place]) RDW SD 44.5 35.7 - 48.1 fL [facility] ([place]) NRBC abs 0.00 0.00 - 0.01 K/cumm [facility] ([place]) Blood 05/03/2025 8:59 AM CDT 05/03/2025 10:07 AM CDT Chinyere Marques TAN ROOM SUPERVISOR LAB BLOOD ORDERABLES Final R esult Performing Organization Address City/[facility]/ZIP Co de Phone Number [facility] ([place]) 1 [facility] [place] [address] * Vitamin D 25 hydroxy (05/03/2025 8:59 AM CDT) Vitamin D 25-OH 30 30 - 80 ng/mL Blood 05/03/2025 8:59 AM CDT 05/03/2025 10:07 AM CDT us Chinyere Marques TAN ROOM SUPERVISOR LAB BLOOD ORDERABLES Final R esult Performing Organization Address City/[facility] Co de Phone Number [facility] 1 [place] [address] * Lipid panel (05/03/2025 8:59 AM CDT) [...] revised on 2018. Triglycerides 97 <=149 mg/dL [facility] ([place]) Comment: Interpretive Data Ages < or = [...] 2004;110:227 3. Dani Phillips al. ENEDELIA Cardiol. 2020 March 16;5(5):540-548. doi: [email or web address] Current Interpretive Data was [...] 05/03/2025 10:07 AM CDT us Chinyere Marques TAN ROOM SUPERVISOR LAB BLOOD ORDERABLES Final R esult [facility] ([place]) 1 [facility] Department [place] [address] * (ABNORMAL) Comprehensive metabolic panel (05/03/2025 8:59 [...] classification and Diagnosis of Diabetes Diabetes Care 202; 46: S19-S40. Current interpretive data was last [...] 05/03/2025 10:07 AM CDT us Chinyere Marques TAN ROOM SUPERVISOR LAB BLOOD ORDERABLES Final R esult [facility] 1 [facility] Department [place] [address] * ThinPrep Imaging Pap and HPV mRNA E6/E7 Reflex HPV 16,18/45 (11/10/2017 2:12 PM CEREAL POPPER) Report status [facility] [place] Comment:Result canceled by dena uribe ancillary CLINICAL INFORMATION: [facility] [place] [...] [facility] [place] Comment:Result canceled by dena uribe ancillary HPV interp [facility] [place] Comment:Negative for intraep ithelial lesion or malignancy. Infection: [facility] [place] Comment:Result canceled by dena uribe ancillary COMMENTS [facility] [place] Comment: This Pap test has been evaluated with computer assisted technology. [employer] [facility] - Comment: PCM, CT(ASCP) CT screening location: [place] [address] [place] [address] Review academic affairs specialist [facility] - Comment:Result canceled by t he ancillary Pathologist [facility] [place] Comment:Result canceled by t he ancillary Human papillomavirus RNA, High Risk E6/E7 Not Detected Not Detected [facility] - Comment: This test was performed using the APTIMA HPV Assay ([employer] This assay detects E6/E7 viral messenger RNA (mRNA) from 14 high-risk HPV types (16,18,31,33,35,39,45,51,52,56,58,59,66,68). 11/10/2017 2:12 PM CEREAL POPPER 11/11/2017 2:45 AM CEREAL POPPER Narrative Resulting Agency Comment Performing Organization Information: Site ID: Name: [facility] Address: [facility] [place] [address] Director: Jasbir Montgomery MD Melina Mcleod MD LAB CYTOLOGY ORDERA BLES Final Result [facility] - [place], [place] * Screening Mammogram 2D Bilateral (11/10/2017 11:30 AM CEREAL POPPER) Anatomical Region Laterality Modality Breast Bilateral Mammography Narrative 11/12/2017 4:09 PM CEREAL POPPER BILATERAL DIGITAL MAMMOGRAPHY The present examination has [...] Relevant to Health Maintenance Insurance COMMERCIAL GENERIC [facility] CHOICE PLUS [facility] HMO/PPO Address: [address] [address] [place] [address] HEALTH ALLIANCE [facility] CHOICE PLUS [facility] HMO/PPO Address: [address] [address] [place] [address] Care Teams Acquisition Professional Relationship Specialty Start Date End Date Rikki Fernández PCP - General 12/01/17
[2025-06-13 12:28] LABS: Anion Gap 5 mmol/L (4-12); Blood Urea Nitrogen 14 mg/dL (7-17); Calcium 9.1 mg/dL (8.4-10.2); Carbon Dioxide 27 mmol/L (22-30); Chloride 103 mmol/L (98-107); Estimated Glomerular Filt Rate > 60; Glucose 102 mg/dL (65-110); Potassium 4.3 mmol/L (3.4-5.0); Sodium 135 mmol/L (137-145)
== END 2025-06-13 10:34 | disposition home or self-care (01) ==
LOC: ANHSURGERY 10:38
PROVIDERS: Anesthesiology; PCP Nurse Practitioner; Visit Provider Orthopaedic Surgery
DX: Z01.818 Encounter for other preprocedural examination (principal); I10 Essential (primary) hypertension; I45.89 Other specified conduction disorders; Z79.899 Other long term (current) drug therapy
CPT/HCPCS: 36415; 80048; 93005

== ENCOUNTER 2025-07-21 07:16 | Outpatient (CLI) | payer OTHER, SELFPAY ==
--- NOTE | 2025-07-21 07:33 | EST_ITS ---
Patient Info Name: Ro Melvin Age: 50 years : 1975 Gender: Female Ht: 64 in Wt: 300 lbs BSA: 2.56 m2 HR: 68 bpm BP: 153 / 93 mmHg Exam Date: 07/21/2025 7:33 AM Patient Status: O Admit Date: 07/21/2025 Exam Type: CA stress test treadmill A treadmill exercise stress test was performed. Staff Attending Provider: Rahul Ledezma DO Exercise Technologist: Kelly Agrawal Exercise Physician: Rahul Ledezma DO Summary 1. 1. Negative Nael exercise stress test for ischemic ST changes by ECG criteria. 2. 2. Poor functional capacity, achieving 4.7 METs of workload. 3. 3. Rapid HR response to exercise. 4. 4. Appropriate HR recovery at 1 minute post exercise. 5. 5. No imaging with stress testing. 6. 6. Patient informed of the above results. Protocol: Nael Stress ECG Details Stage: REST Duration (min): 2 min : 26 sec Speed (mph): 0.0 Grade (%): 0 HR (bpm): 68 SBP (mmHg): 153 DBP (mmHg): 93 METS: --- Stage: REST Duration (min): 7 min : 25 sec Speed (mph): 0.0 Grade (%): 0 HR (bpm): 88 SBP (mmHg): 153 DBP (mmHg): 93 METS: --- Stage: STAGE 1 Duration (min): 1 min : 0 sec Speed (mph): 1.7 Grade (%): 10 HR (bpm): 125 SBP (mmHg): 153 DBP (mmHg): 93 METS: --- Stage: STAGE 1 Duration (min): 2 min : 0 sec Speed (mph): 1.7 Grade (%): 10 HR (bpm): 144 SBP (mmHg): 153 DBP (mmHg): 93 METS: --- Stage: STAGE 1 Duration (min): 3 min : 0 sec Speed (mph): 1.7 Grade (%): 10 HR (bpm): 154 SBP (mmHg): 153 DBP (mmHg): 93 METS: --- Stage: RECOVERY Duration (min): 0 min : 59 sec Speed (mph): 0.0 Grade (%): 0 HR (bpm): 139 SBP (mmHg): 153 DBP (mmHg): 93 METS: --- Stage: RECOVERY Duration (min): 1 min : 59 sec Speed (mph): 0.0 Grade (%): 0 HR (bpm): 72 SBP (mmHg): 153 DBP (mmHg): 93 METS: --- Stage: RECOVERY Duration (min): 2 min : 59 sec Speed (mph): 0.0 Grade (%): 0 HR (bpm): 90 SBP (mmHg): 203 DBP (mmHg): 81 METS: --- Stage: RECOVERY Duration (min): 3 min : 59 sec Speed (mph): 0.0 Grade (%): 0 HR (bpm): 87 SBP (mmHg): 203 DBP (mmHg): 81 METS: --- Stage: RECOVERY Duration (min): 4 min : 59 sec Speed (mph): 0.0 Grade (%): 0 HR (bpm): 96 SBP (mmHg): 203 DBP (mmHg): 81 METS: --- Stage: RECOVERY Duration (min): 5 min : 59 sec Speed (mph): 0.0 Grade (%): 0 HR (bpm): 90 SBP (mmHg): 203 DBP (mmHg): 81 METS: --- Stage: RECOVERY Duration (min): 6 min : 59 sec Speed (mph): 0.0 Grade (%): 0 HR (bpm): 90 SBP (mmHg): 203 DBP (mmHg): 81 METS: --- Stage: RECOVERY Duration (min): 7 min : 59 sec Speed (mph): 0.0 Grade (%): 0 HR (bpm): 89 SBP (mmHg): 203 DBP (mmHg): 81 METS: --- Stage: RECOVERY Duration (min): 8 min : 48 sec Speed (mph): 0.0 Grade (%): 0 HR (bpm): --- SBP (mmHg): 117 DBP (mmHg): 87 METS: --- Rest HR: 88 bpm Peak HR: 154 bpm Rest Sys BP: 153 mmHg Peak Sys BP: 203 mmHg Max Pred HR: 170 bpm % Max Pred HR: 91 % Target HR: 145 bpm Max RPP: 31,262 bpm*mmHg Call Score: -2 Termination Reason: Reached target heart rate or workload Cardiac Symptoms: Shortness of breath Max ST Seg Deviation: 0.90 mm Total Time: 3 min : 0 sec Rest Chow BP: 93 mmHg Peak Chow BP: 81 mmHg Angina Score: None Total METS: 4.7 Resting ECG Sinus rhythm, borderline T wave in ant/inf leads. Stress ECG No ST changes. Arrhythmias None. Report Signatures
--- NOTE | 2025-07-21 07:33 | ECHO_ITS ---
Patient Info Name: Ro Melvin Age: 50 years : 1975 Gender: Female Ht: 64 in Wt: 300 lbs BSA: 2.56 m2 HR: 72 bpm BP: 144 / 114 mmHg Technical Quality: Good Exam Date: 07/21/2025 8:18 AM Patient Status: O Admit Date: 07/21/2025 Exam Type: CA echo doppler color flow Complete two-dimensional, color flow and Doppler transthoracic echocardiogram is performed. Tape Recorder Mechanic: Lorri Pitts Attending Provider: Rahul Ledezma DO Summary 1. Complete two-dimensional, color flow and Doppler transthoracic echocardiogram is performed. 2. Left ventricular chamber dimension is mildly enlarged. 3. Left ventricular systolic function is normal, estimated at 60-65. 4. The left ventricular diastolic function is grade I diastolic dysfunction. 5. E/e' 10 is mildly elevated. 6. Left atrial chamber dimension is mildly enlarged. 7. There is mild aortic valve sclerosis. 8. There is trace aortic valve regurgitation. 9. There is mild mitral valve regurgitation. 10. There is mild tricuspid valve regurgitation. 11. No pulmonary hypertension, estimated pulmonary arterial systolic pressure is 35 mmHg. Left Ventricle E/e' 10 is mildly elevated. Left ventricular chamber dimension is mildly enlarged. Left ventricular systolic function is normal, estimated at 60-65. The left ventricular diastolic function is grade I diastolic dysfunction. Right Ventricle Right ventricular chamber dimension is normal. Right ventricular systolic function is normal and with normal TAPSE 2.2 cm. Left Atria Left atrial chamber dimension is mildly enlarged. Right Atria Right atrial chamber dimension is normal. Aortic Valve The aortic valve is trileaflet. There is mild aortic valve sclerosis. There is no aortic valve stenosis. There is trace aortic valve regurgitation. Pulmonic Valve There is no pulmonic regurgitation. Mitral Valve There is no mitral valve stenosis. There is mild mitral valve regurgitation. Tricuspid Valve There is mild tricuspid valve regurgitation. No pulmonary hypertension, estimated pulmonary arterial systolic pressure is 35 mmHg. Pericardium/Pleural There is no pericardial effusion. Inferior Vena Cava Normal inferior vena cava with >50% collapse upon inspiration consistent with normal right atrial pressure, 5 mmHg. Aorta The aortic root size at the sinus of Valsalva is normal. Left Ventricular Outflow Tract Name Value Normal LVOT 2D LVOT Diameter 2.0 cm LVOT Doppler LVOT Peak Velocity 143 cm/s LVOT Peak Gradient 8 mmHg LVOT Mean Gradient 4 mmHg LVOT VTI 31 cm LVOT VTI/AV VTI Ratio 0.7 LVOT Stroke Volume 98 ml LVOT CO 6.6 l/min LVOT CI 2.6 l/min/m2 Pulmonic Valve Name Value Normal RVOT Doppler RVOT Peak Velocity 107 cm/s RVOT Peak Gradient 5 mmHg PV Doppler PV Peak Velocity 136 cm/s PV Peak Gradient 7 mmHg Mitral Valve Name Value Normal MV Diastolic Function MV E Peak Velocity 82 cm/s MV A Peak Velocity 83 cm/s MV E/A 1.0 MV Decel Time (PW) 298 ms MV Annular TDI MV E/e' (Septal) 11.2 MV E/e' (Lateral) 9.1 MV E/e' (Average) 10.2 Tricuspid Valve Name Value Normal TV Regurgitation Doppler TR Peak Velocity 276 cm/s TR Peak Gradient 30 mmHg Estimated PAP/RSVP RA Pressure 5 mmHg <=5 PA Systolic Pressure 35 mmHg <36 RV Systolic Pressure 35 mmHg <36 Aortic Valve Name Value Normal AV Doppler AV Peak Velocity 201 cm/s AV Peak Gradient 14 mmHg AV Mean Gradient 8 mmHg AV VTI 47 cm AV Area (Cont Eq VTI) 2.1 cm2 >=3.0 AV Area (Cont Eq Koffi) 2.2 cm2 AV DI (Koffi) 0.71 AV Regurgitation 2D LVOT Area 3.1 cm2 Ventricles Name Value Normal LV Dimensions 2D/MM IVS Diastolic Thickness (2D) 0.9 cm 0.6-1.0 LVID Diastole (2D) 5.9 cm 3.8-5.2 LVIW Diastolic Thickness (2D) 1.0 cm 0.6-0.9 LVID Systole (2D) 3.8 cm 2.2-3.5 LVOT Diameter 2.0 cm LV Mass (2D Cubed) 226.08 g 67.00-162.00 LV Mass Index (2D Cubed) 88 g/m2 43-95 Relative Wall Thickness (2D) 0.32 <=0.42 LV Fractional Shortening/Ejection Fraction 2D/MM LV Fractional Shortening (2D) 37 % 27-45 LV EF (2D Teichholz) 65 % LV Diastolic Volume (4C MOD) 132 ml LV EF (4C MOD) 51 % LV Diastolic Volume (2C MOD) 102 ml LV EF (2C MOD) 57 % LV Diastolic Volume (BP MOD) 118 ml 46-106 LV Diastolic Volume Index (BP MOD) 46 ml/m2 29-61 LV Systolic Volume (BP MOD) 54 ml 14-42 LV Systolic Volume Index (BP MOD) 21 ml/m2 8-24 LV EF (BP MOD) 54 % 54-74 LV Diastolic Length (4C) 7.7 cm LV Systolic Length (4C) 6.3 cm LV Stroke Volume (4C MOD) 67 ml Atria Name Value Normal LA Dimensions LA Volume (4C A-L) 41 ml LA Volume (BP A-L) 55 ml RA Dimensions RA Systolic Major [place] Length (4C) 5.3 cm 2.2-2.8 RA Area (4C) 15.2 cm2 <=18.0 Report Signatures
== END 2025-07-21 07:17 | disposition home or self-care (01) ==
LOC: ANHCARD 07:17
PROVIDERS: PCP Nurse Practitioner; Visit Provider Internal Medicine Cardiovascular Disease
DX: Z01.810 Encounter for preprocedural cardiovascular examination (principal); R93.1 Abnormal findings on diagnostic imaging of heart and coronary circulation; R06.09 Other forms of dyspnea
CPT/HCPCS: 93017; 93306

== ENCOUNTER 2025-08-25 01:49 | Day surgery (SDC) | payer BC, SELFPAY ==
[2025-06-12 11:34] VITALS: BMI 51.6
--- NOTE | 2025-06-12 11:42 | PC.NURSE ---
Addendum entered by Tj Subramanian RN 08/24/25 09:55: Gave patients instructions for surgery scheduled for 08/25/25 with arrival time of 0600 for procedure at 0730. Pt is aware of NPO instructions, bathing/grooming. Pt is holding her Losartan the morning of surgery. Per Surgial Liason okay to collect the BMP DOS. 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 Planned Procedure Time: _1030_.? Time changes happen often and if your time is changed the preop area will call you the afternoon before. - You and your visitor will be asked to self-screen and do not enter if you have any COVID symptoms. Please call surgeon if you need to reschedule. - A mask is optional within the hospital at this time. Patients may have clear liquids (water, carbonated beverages, clear teas, apple juice) until 3 hours prior to surgery with a maximum of 20 ounces. - No food from midnight until time of surgery and no smoking, or chewing tobacco (or any form of nicotine). No chewing gum, candy or mints. Take only the following medications with a SIP of water on the morning of surgery: ___None____ DO NOT STOP ANY OF YOUR OTHER PRESCRIPTION MEDICATIONS PRIOR TO SURGERY EXCEPT THE FOLLOWING Hold all vitamins and supplements for 3 days per anesthesiologist. Stop today Medications to discontinue per physician Date to take last dose Please no make-up, nail kenyan, hairspray, perfume, deodorant, or body powder the day of surgery.? No jewelry (including any body piercings) or valuables the day of surgery, leave them at home.? Please take a shower or bath the night before, or the morning of, surgery with an antibacterial soap.? Wear comfortable, loose fitting clothing.? - Jewelry must be removed prior to entering the operating room.? Rings and piercings that are not removed may be cut off. - The hospital will not accept responsibility for valuables.? - Please leave all valuables, including medications, at home the day of surgery. If you are going home after surgery, a licensed jeep driver must drive you home.? - NO public transportation without another adult if you receive anesthesia. - We recommend that an adult stay with you for 24 hours following discharge. - We also recommend that you do not drive, make important decision, drink alcoholic beverages, or take any drugs that were not prescribed by your health care provider for at least 24 hours after your discharge time. Follow any additional instructions given to you from your surgeon. Telephone instructions given to __Ro___and asked if any additional questions and then verbalized understanding. Patient advised to call surgeon office or pre surgery nurse liaison [phone] if any additional questions.
--- OUTSIDE RECORDS SUMMARY | 2025-06-16 00:37 | XMS_ITS | Clinical Summary ---
Author Organization [facility] 155 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 Not on file [...] CDT Respiratory Rate 16 11/17/2017 2:47 PM RN CLINICAL Oxygen Saturation 96% 07/16/2022 1:23 PM CDT [...] REFLEX HPV 16,18/45 Routine 11/10/2017 2:12 PM RN CLINICAL SCREENING MAMMOGRAM 2D BILATERAL Schedule Routine, Read Routine (OP Routine) 11/10/2017 11:30 AM RN CLINICAL Screening for malignant neoplasm of breast from [...] 05/03/2025 10:07 AM CDT us Chinyere Marques CAFE WORKER LAB BLOOD ORDERABLES Final R esult [facility] ([place]) 1 [facility] [place] [address] * Differential, auto (05/03/2025 8:59 AM CDT) [...] 05/03/2025 10:07 AM CDT us Chinyere Marques CAFE WORKER LAB BLOOD ORDERABLES Final R esult [facility] ([place]) 1 [facility] [place] [address] * (ABNORMAL) CBC with auto differential (05/03/2025 8:59 AM CDT) WBC 7.72 3.80 - 9.90 K/cumm Hgb 11.7(L) 11.9 - 15.5 g/dL [facility] ([place]) Hct 36.6 35.6 - 45.5 % [facility] ([place]) Plt 261 150 - 400 K/cumm [facility] ([place]) MPV 9.7 9.1 - 12.3 fL [facility] ([place]) RBC 4.07 3.90 - 5.20 M/cumm [facility] ([place]) MCV 89.9 81.3 - 96.4 fL [facility] ([place]) MCH 28.7 27.1 - 33.3 pg [facility] ([place]) MCHC 32.0(L) 32.3 - 35.7 g/dL [facility] ([place]) RDW CV 13.6 11.1 - 14.9 % [facility] ([place]) RDW SD 44.5 35.7 - 48.1 fL [facility] ([place]) NRBC abs 0.00 0.00 - 0.01 K/cumm [facility] ([place]) Blood 05/03/2025 8:59 AM CDT 05/03/2025 10:07 AM CDT us Chinyere Marques NP LAB BLOOD ORDERABLES Final R esult [facility] ([place]) 1 [facility] [place] [address] * Vitamin D 25 hydroxy (05/03/2025 8:59 AM CDT) Vitamin D 25-OH 30 30 - 80 ng/mL Blood 05/03/2025 8:59 AM CDT 05/03/2025 10:07 AM CDT Chinyere Marques NP LAB BLOOD ORDERABLES Final R esult [facility] ([place]) 1 [facility] [place] [address] * Lipid panel (05/03/2025 8:59 AM CDT) [...] 05/03/2025 10:07 AM CDT us Chinyere Marques CAFE WORKER LAB BLOOD ORDERABLES Final R esult [facility] ([place]) 1 [facility] [place] [address] * (ABNORMAL) Comprehensive metabolic panel (05/03/2025 8:59 [...] 05/03/2025 10:07 AM CDT us Chinyere Marques CAFE WORKER LAB BLOOD ORDERABLES Final R esult [facility] ([place]) 1 [facility] [place] [address] * ThinPrep Imaging Pap and HPV mRNA E6/E7 Reflex HPV 16,18/45 (11/10/2017 2:12 PM RN CLINICAL) Report status [facility] [place] Comment:Result canceled by [facility] ancillary CLINICAL INFORMATION: [facility] [place] [...] [facility] [place] Comment:Result canceled by [facility] ancillary HPV interp [facility] [place] Comment:Negative for intraep ithelial lesion or malignancy. Infection: [facility] [place] Comment:Result canceled by t ancillary COMMENTS [facility] [place] Comment: This Pap test has been evaluated with computer assisted technology. [employer] [facility] - Comment: PCM, CT(ASCP) CT screening location: [place] [address] [place] [address] Review finishing lab technician [facility] [place] Comment:Result canceled by t ancillary Pathologist [facility] [place] Comment:Result canceled by [facility] ancillary Human papillomavirus RNA, High Risk E6/E7 Not Detected Not Detected [facility] [place] Comment: This test was performed using the APTIMA HPV Assay ([employer] This assay detects E6/E7 viral messenger RNA (mRNA) from 14 high-risk HPV types (16,18,31,33,35,39,45,51,52,56,58,59,66,68). 11/10/2017 2:12 PM RN CLINICAL 11/11/2017 2:45 AM RN CLINICAL Narrative Resulting Agency Comment Performing Organization Information: Site ID: Name: [facility] Address: [address] [place] [address] Director: Jasbir Montgomery MD Melina Mcleod MD LAB CYTOLOGY ORDERA BLES Final Result [facility] - [place], [place] * Screening Mammogram 2D Bilateral (11/10/2017 11:30 AM RN CLINICAL) Anatomical Region Laterality Modality Breast Bilateral Mammography Narrative 11/12/2017 4:09 PM RN CLINICAL BILATERAL DIGITAL MAMMOGRAPHY The present examination has [...] Relevant to Health Maintenance Insurance COMMERCIAL GENERIC [facility] CHOICE PLUS HEALTH ALLIANCE [facility] CHOICE PLUS Care Teams Teaching Fellow Relationship Specialty Start Date End Date Rikki Fernández PCP - General 12/01/17
--- OUTSIDE RECORDS SUMMARY | 2025-06-16 00:37 | XMS_ITS | Referral Summary ---
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 Not on file Not on file Last Filed Vital Signs Vital Sign Reading Time Taken Comments Blood Pressure 140/80 07/16/2022 1:23 PM CDT Pulse 91 07/16/2022 1:23 PM CDT Temperature 36.1 C (96.9 F) 07/16/2022 1:23 PM CDT Respiratory Rate 16 11/17/2017 2:47 PM SANITATION INSPECTOR Oxygen Saturation 96% 07/16/2022 1:23 PM CDT [...] REFLEX HPV 16,18/45 Routine 11/10/2017 2:12 PM SANITATION INSPECTOR SCREENING MAMMOGRAM 2D BILATERAL Schedule Routine, Read Routine (OP Routine) 11/10/2017 11:30 AM SANITATION INSPECTOR Screening for malignant neoplasm of breast from [...] BLOOD ORDERABLES Final R esult [facility] ([place]) [address] [facility] [place] [address] * Differential, auto (05/03/2025 8:59 AM CDT) Neutrophil abs 4.41 1.50 - 6.50 K/cumm Imm gran abs 0.03 0.00 - 0.10 K/cumm [facility] ([place]) Lymphocyte abs 2.28 0.80 - 3.30 K/cumm [facility] ([place]) Monocyte abs 0.63 0.20 - 0.80 K/cumm [facility] ([place]) Eosinophil abs 0.33 0.00 - 0.50 K/cumm [facility] ([place]) Basophil abs 0.04 0.00 - 0.10 K/cumm [facility] ([place]) Neutrophil pct 57.1 % [facility] ([place]) Comment: Interpretive Data Percent cell count reference ranges are not reported, since discordance with absolute values may lead to misinterpretation of CBC data. Current Interpretive Data was last revised on 2018. Imm gran pct 0.4 % [facility] ([place]) Comment: Interpretive Data Percent cell count reference ranges are not reported, since discordance with absolute values may lead to misinterpretation of CBC data. Current Interpretive Data was last revised on 2018. Lymphocyte pct 29.5 % [facility] ([place]) Comment: Interpretive Data Percent cell count reference ranges are not reported, since discordance with absolute values may lead to misinterpretation of CBC data. Current Interpretive Data was last revised on 2018. Monocyte pct 8.2 % [facility] ([place]) Comment: Interpretive Data Percent cell count reference [...] 05/03/2025 10:07 AM CDT us Chinyere Marques DIAMOND PICKER LAB BLOOD ORDERABLES Final R esult [facility] ([place]) [address] [facility] [place] [address] * (ABNORMAL) CBC with auto differential (05/03/2025 [...] 32.0(L) 32.3 - 35.7 g/dL [facility] ([place]) RDW CV 13.6 11.1 - 14.9 % [facility] ([place]) RDW SD 44.5 35.7 - 48.1 fL [facility] ([place]) NRBC abs 0.00 0.00 - 0.01 K/cumm [facility] ([place]) Blood 05/03/2025 8:59 AM CDT 05/03/2025 10:07 AM CDT Chinyere Marques DIAMOND PICKER LAB BLOOD ORDERABLES Final R esult Performing Organization Address City/[facility]/ZIP Co de Phone Number [facility] ([place]) [address] [facility] [place] [address] * Vitamin D 25 hydroxy (05/03/2025 8:59 AM CDT) Vitamin D 25-OH 30 30 - 80 ng/mL Blood 05/03/2025 8:59 AM CDT 05/03/2025 10:07 AM CDT us Chinyere Marques DIAMOND PICKER LAB BLOOD ORDERABLES Final R esult Performing Organization Address City/[facility] [[email or web address]] Co de Phone Number [facility] 1 [place] [address] * Lipid panel (05/03/2025 8:59 AM CDT) [...] revised on 2018. Triglycerides 97 <=149 mg/dL [facility]) Comment: Interpretive Data Ages < or = [...] 05/03/2025 10:07 AM CDT us Chinyere Marques DIAMOND PICKER LAB BLOOD ORDERABLES Final R esult [facility] ([place]) [address] [facility] [place] [address] * (ABNORMAL) Comprehensive metabolic panel (05/03/2025 8:59 [...] 05/03/2025 10:07 AM CDT us Chinyere Marques DIAMOND PICKER LAB BLOOD ORDERABLES Final R esult [facility] ([place] [address] [facility] [place] [address] * ThinPrep Imaging Pap and HPV mRNA E6/E7 Reflex HPV 16,18/45 (11/10/2017 2:12 PM SANITATION INSPECTOR) Report status [facility] [place] [...] has been evaluated with computer assisted technology. [employer] [facility] - Comment: PCM, CT(ASCP) CT screening location: [place] [address] [place] [address] Review astronautical engineer [facility] - Comment:Result canceled by t he ancillary Pathologist [facility] [place] Comment:Result canceled by t he ancillary Human papillomavirus RNA, High Risk E6/E7 Not Detected Not Detected [facility] - Comment: This test was performed using the APTIMA HPV Assay ([employer] This assay detects E6/E7 viral messenger RNA (mRNA) from 14 high-risk HPV types (16,18,31,33,35,39,45,51,52,56,58,59,66,68). 11/10/2017 2:12 PM SANITATION INSPECTOR 11/11/2017 2:45 AM SANITATION INSPECTOR Narrative Resulting Agency Comment Performing Organization Information: Site ID: Name: [facility] Address: [facility] [place] [address] Director: Jasbir Montgomery MD Melina Mcleod MD LAB CYTOLOGY ORDERA BLES Final Result [facility] - [place], [place] * Screening Mammogram 2D Bilateral (11/10/2017 11:30 AM SANITATION INSPECTOR) Anatomical Region Laterality Modality Breast Bilateral Mammography Narrative 11/12/2017 4:09 PM SANITATION INSPECTOR BILATERAL DIGITAL MAMMOGRAPHY The present examination has [...] Relevant to Health Maintenance Insurance COMMERCIAL GENERIC [facility] CHOICE PLUS HEALTH ALLIANCE [facility] CHOICE PLUS Care Teams Die Stamper Relationship Specialty Start Date End Date Rikki Fernández PCP - General 12/01/17
--- OUTSIDE RECORDS SUMMARY | 2025-06-16 00:37 | XMS_ITS | Clinical Summary ---
Author Organization [facility] Address [address] [place] [address] Care Team Providers Care Certified Surgical First Assistant Name Role Phone Vinny Vanessa S DO [...] age to complete this topic Care Teams Certified Surgical First Assistant Relationship Specialty Start Date End Date Vanessa Casillas DO [address] [place] [address] PCP - General FAMILY PRACTICE 09/02/21
--- OUTSIDE RECORDS SUMMARY | 2025-06-16 00:37 | XMS_ITS | Clinical Summary ---
Author Organization [facility] Address [address] [place] [address] Phone Care Team Providers Care Forming Press Operator Name Role Phone Segundo Whatley DO Primary Care Provider Allergies No known [...] Comments Blood Pressure 124/82 09/25/2024 8:49 AM CLOTH HAND Pulse 93 09/25/2024 8:49 AM CLOTH HAND Temperature 37.3 C (99.1 F) 09/25/2024 8:49 AM CLOTH HAND Respiratory Rate 14 09/25/2024 8:49 AM CLOTH HAND Oxygen Saturation 98% 09/25/2024 8:49 AM CLOTH HAND Inhaled Oxygen Concentration - - Weight - [...] this topic Insurance [employer] Care Teams Forming Press Operator Relationship Specialty Start Date End Date Segundo Whatley DO [address] [place] [address] [place] [address] PCP - General Internal Medicine 10/19/21
--- NOTE | 2025-06-16 07:27 | WPDHPUPDATE1 ---
History and Physical Update Update Date/Time: 06/16/25 07:27 History and Physical has been reviewed, including an updated exam of the patient. There are NO changes in the patient's condition. Risks, benefits, and alternatives have been discussed and questions answered. Patient agrees to proceed with procedure.
[2025-08-25] VITALS (8 sets, daily range): BP systolic 124–146; BP diastolic 62–93; PULSE 65–80; RESP 12–19; TEMP 36.2–36.5; O2SAT 93–100
--- OUTSIDE RECORDS SUMMARY | 2025-08-25 01:52 | XMS_ITS | Clinical Summary ---
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 Not on file Not on file Not [...] CDT Respiratory Rate 16 11/17/2017 2:47 PM ASS[employer]ANT COUNTY ATT[employer]NEY Oxygen Saturation 96% 07/16/2022 1: 23 PM CDT Inhaled Oxygen Concentration - - [...] 18-64 11/10/2018 11/10/2017 Depression Screening 01/01/2019 01/01/2018 Zoster Vaccine (1 of 2) 2025 Covid-19 Vaccine (4 - 2024-2 6 season) 2025 05/27/2022, 05/30/2021, 05/09/2021 Influenza Vaccine (#1) 2025 Pneumococcal vaccine <65 Aged Out No longer eligible based on patient's age to complete this topic Procedures Procedure Name Priority Date/Time Associated Diagnosis Comments THINPREP IMAGING PAP AND HPV MRNA E6/E7 REFLEX HPV 16,18/45 Routine 11/10/2017 2:12 PM ASSISTANT COUNTY ATTORNEY SCREENING MAMMOGRAM 2D BILATERAL Schedule Routine, Read Routine (OP Routine) 11/10/2017 11:30 AM ASSISTANT COUNTY ATTORNEY Screening for malignant neoplasm of breast from Last 3 Months or Most Recently Relevant to Health Maintenance Results * ThinPrep Imaging Pap and HPV mRNA E6/E7 Reflex HPV 16,18/45 (11/10/2017 2:12 PM ASSISTANT COUNTY ATTORNEY) Report status [facility]CELED [facility] - Comment:Result canceled by t rony ancillary CLINICAL INFORMATION: [facility] [place] Comment:Information not prov ided LMP NONE GIVEN [facility] [place] Previous Pap NONE GIVEN [facility] [place] Prev. Bx NONE GIVEN [facility] [place] SOURCE: [facility] - Comment:Cervix, Endocervix Pap, specimen adequacy [facility] - Comment: Satisfactory for evaluation. Endocervical/transformation zone component present. Age and/or menstrual status not provided Pap, general categorization [facility] [place] Comment:Result canceled by dena uribe ancillary HPV interp [facility] - Comment:Negative for intraep ithelial lesion or malignancy. Infection: [facility]CELED [facility] [place] Comment:Result canceled by dena uribe ancillary COMMENTS [facility] [place] Comment: This Pap test has been evaluated with computer assisted technology. Sql Report Developer [facility] - Comment: PCM, CT(ASCP) CT screening location: [place] [address] [place] [address] Review pharmacy resource tech CANCELED [facility] - Comment:Result canceled by dena uribe ancillary Pathologist [facility]ED [facility] [place] Comment:Result canceled by dena uribe ancillary Human papillomavirus RNA, High Risk E6/E7 Not Detected Not Detected [facility] - Comment: This test was performed using the APTIMA HPV Assay ([employer] This assay detects E6/E7 viral messenger RNA (mRNA) from 14 high-risk HPV types (16,18,31,33,35,39,45,51,52,56,58,59,66,68). 11/10/2017 2:12 PM ASSISTANT COUNTY ATTORNEY 11/11/2017 2:45 AM ASSISTANT COUNTY ATTORNEY Narrative Resulting Agency Comment Performing Organization Information: Site ID: Name: [facility] Address: [facility] [address] [place] [address] Director: Jasbir Montgomery MD Melina Mcleod MD LAB CYTOLOGY ORDERA BLES Final Result [facility] - [place], [place] * Screening Mammogram 2D Bilateral (11/10/2017 11:30 AM ASSISTANT COUNTY ATTORNEY) Anatomical Region Laterality Modality Breast Bilateral Mammography Narrative 11/12/2017 4:09 PM ASSISTANT COUNTY ATTORNEY BILATERAL DIGITAL MAMMOGRAPHY The present examination has [...] Category 0: Incomplete: Need Additional Imaging Evaluation us Melina Mcleod MD IMG MAMMO PROCEDURE S Final Result from Last 3 Months or Most Recently Relevant to Health Maintenance Insurance [employer] [facility] Address: [address] [address] [employer] [facility] H[facility]/PPO Address: [address] [address] Care Teams Pocket Maker Relationship Specialty Start Date End Date Rikki Fernández PCP - General 12/01/17
--- OUTSIDE RECORDS SUMMARY | 2025-08-25 01:52 | XMS_ITS | Clinical Summary ---
Author Organization [facility] Address [address] [place] [address] Phone Care Team Providers Care Supervisor Metal Cans Name Role Phone Segundo Whatley DO Primary [...] Comments Blood Pressure 124/82 09/25/2024 8:49 AM SEASONER Pulse 93 09/25/2024 8:49 AM SEASONER Temperature 37.3 C (99.1 F) 09/25/2024 8:49 AM SEASONER Respiratory Rate 14 09/25/2024 8:49 AM SEASONER Oxygen Saturation 98% 09/25/2024 8:49 AM SEASONER Inhaled Oxygen Concentration - - Weight - [...] Blood 2020 Mammogram 08/04/2023 08/04/2022, 11/10/2017, 11/10/2017 Pneumococcal Immunization (5 0+ years) (1 of 1 - PCV) 2025 Zoster Immunization (1 of 2) 2025 Influenza Immunization (#1) 2025 SARS-COV-2 Immunization ( - season) 2025 05/27/2022, 05/30/2021, 05/09/2021 Respiratory Syncytial Virus (RSV) Immunization (Adult) (1 [...] this topic Insurance [employer] Care Teams Supervisor Metal Cans Relationship Specialty Start Date End Date Segundo Whatley DO [address] [place] [address] [place] [address] PCP - General Internal Medicine 10/19/21
[2025-08-25] MEDS: LACTATED RINGERS 1,000 ML 30 ML IV CONT (07:00)
[2025-08-25] MEDS: CELECOXIB 200 MG CAPSULE PO (07:00)
[2025-08-25] MEDS: ACETAMINOPHEN 500 MG TABLET 1000 MG PO (07:00)
--- NOTE | 2025-08-25 07:02 | P.PNAN_ITS ---
Anes - Initial Pre Proc Eval Procedure: Operation Date: 08/25/25 07:30 Proposed Procedures p Right Knee Arthroscopy - Aydin Young MD Date/Time: 08/25/25 07:02 Surgeon: Aydin Young MD Pre Op Diagnosis: rt knee medial meniscal tear Patient Data Age: 50 Gender: F Height: 1.63 m Weight: 136.4 kg Allergies Allergy/AdvReac Type Severity Reaction Status Date / Time No Known Allergies Allergy Verified 08/23/25 16:56 Home Medications ?Medication ?Instructions ?Recorded ?Confirmed ?Type ascorbate calcium (vitamin C) 500 500 mg PO DAILY 04/1608/21/25 History mg tablet cholecalciferol (vitamin D3) 25 25 mcg PO DAILY 08/21/25 History mcg (1,000 unit) capsule multivitamin 1 tablet PO DAILY 04/29/21 1 History cetirizine 10 mg tablet (All Day 10 mg PO DAILY PRN al lergy symptoms 04/21/23 08/21/25 History Allergy (cetirizine)) ibuprofen 600 mg tablet 600 mg PO TID 05/02/2508/21 History losartan 50 mg-hydrochlorothiazide 1 tablet PO DAILY # 90 tabs 05/02/25 08/21/25 Rx 12.5 mg tablet chlorhexidine gluconate 4 % 1 applic topical ONCE #237 mL 06/09/25 08/21/25 Rx topical liquid (Hibiclens) Laboratory Tests 08/25/25 06:57 Sodium Pending Potassium Pending Chloride Pending Carbon Dioxide Pending Anion Gap Pending BUN Pending Creatinine Pending Estim Creat Clear Calc Pending Estimated GFR Pending Glucose Pending Calcium Pending Patient hx anesthesia problems: none Family hx anesthesia problems: none Results Review: All pre-operative results and documents have been reviewed as part of the pre- operative evaluation. [facility] Past Medical History Medical History (Updated 08/24/25 @ 15:46 by Robe Rosas DO) Hypertension Obesity Lymphedema Left lower extremity Surgical History Surgical History (Updated 08/24/25 @ 15:46 by Robe Rosas DO) History of tubal ligation History of tonsillectomy History of cholecystectomy Family History Family History Sibling Family history of thyroid disease Asthma Mother Depression Family history of arthritis Grandparent Hypertension Family history of arthritis Family history of kidney disease Family history of congestive heart failure Family history of heart disease in male family member before age 55 Social History Social History Smoking status: Never smoker Alcohol intake: current Substance use: never Substance use type: does not use Do You Feel Safe in your Home?: Yes Lack of Transportation: No Lack of Food: Never True Current Housing: I Have Housing Concerned About Future Housing: No Difficulty Paying Gas/Electric Bills: No Difficulty Paying for Meds: No Currently Unemployed: No Education: Master's Degree or Higher Difficulty w/ Childcare or Family Care: No Living arrangements: with family Spiritual care concerns: No Anes - Eval Final PreProcedure Day of Procedure 08/25/25 07:02 Patient weight: super morbidly obese Heart: regular rate and rhythm Lungs: clear to auscultation Airway: Mallampati scale class III Neurological: alert and oriented Last oral intake: >/= 8 hours ASA classification: III Emergent: no Anesthetic plan: proceed Anesthesia type and monitoring: general LMA and standard monitoring Results Review: All pre-operative results and documents have been reviewed as part of the pre- operative evaluation. Informed Consent: The patient's anesthetic plan and its attendant risks and benefits were discussed with the patient/family/POA. Questions were solicited and answers provided to the satisfaction of the patient/family/POA.
--- NOTE | 2025-08-25 07:22 | WPDHPUPDATE1 ---
History and Physical Update Update Date/Time: 08/25/25 07:22 History and Physical has been reviewed, including an updated exam of the patient. There are NO changes in the patient's condition. Risks, benefits, and alternatives have been discussed and questions answered. Patient agrees to proceed with procedure.
[2025-08-25 07:25] LABS: Anion Gap 5 mmol/L (4-12); Blood Urea Nitrogen 13 mg/dL (7-17); Calcium 8.5 mg/dL (8.4-10.2); Carbon Dioxide 27 mmol/L (22-30); Chloride 105 mmol/L (98-107); Estimated CRCL calculation 128 ml/min; Estimated Glomerular Filt Rate > 60; Glucose 111 mg/dL (65-110); Potassium 4.4 mmol/L (3.4-5.0); Sodium 137 mmol/L (137-145)
[2025-08-25] MEDS: ceFAZolin 3 GM/D5W 100 ML 100 ML IVPB (07:36)
[2025-08-25 07:40] LABS: BEDSIDEPREGUCG Negative (Negative)
--- NOTE | 2025-08-25 08:55 | W.PM.PROC2 ---
Procedure Note - Detailed Date of Procedure 08/25/25 Pre-op Diagnosis rt knee medial meniscal tear Post-op Diagnosis Same Procedure Performed RIGHT KNEE SCOPE Surgeon Aydin Young MD Anesthesia General Description of Procedure PATIENT WAS TAKEN TO THE OR. THE RIGHT LEG WAS PREPPED AND DRAPED STERILE. TROCARS WERE PLACED IN THE USUAL FASHION. CAMERA WAS INTRODUCED. THERE WAS CHONDROMALACIA TO THE PATELLA FEMORAL JOINT. THERE WAS A LOT OF SYNOVITIS IN ALL COMPARTMENTS. THE MEDIAL COMPARTMENT SHOWED CHONDROMALACIA TO THE MEDIAL FEMORAL CONDYLE. A SHAVER WAS USED TO PREFORM A CHONDROPLASTY. THERE WAS A LARGE COMPLEX MEDIAL MENISCUS TEAR. THE TEAR WAS RESECTED WITH A BITER AND A SHAVER DOWN TO A SMOOTH BASE. CHONDROPLASTY WAS PREFORMED. THE ACL WAS INTACT. THE LATERAL MENISCUS WAS NOT TORN. THE LATERAL COMPARTMENT HAD MINIMAL CHONDROMALACIA AT THE LATERAL PLATEAU. CHONDROPLASTY WAS PREFORMED. A SYNOVECTOMY WAS PREFORMED WELL. THE PATELLO FEMORAL JOINT UNDERWENT CHONDROPLASTY. THERE WAS GRADE 3 CHONDROMALACIA IN MOST OF THE TROCHLEA AND PART OF THE PATELLA. SYNOVECTOMY WAS PREFORMED IN THE SUPERIOR MEDIAL COMPARTMENT. THE WOUNDS WERE APPROXIMATED WITH 4.0 NYLON. STERILE DRESSING WAS APPLIED. PATIENT WAS EXTUBATED. Estimated Blood Loss 5 Complications No immediate complications Condition Stable Disposition PACU
[2025-08-25] MEDS: fentaNYL CITRATE INJ (*CRX) 100 MCG/2 ML VIAL 25 MCG IV PUSH ×2 (09:26→09:31)
== END 2025-08-25 11:00 | disposition home or self-care (01) ==
PROVIDERS: Anesthesiology; PCP Nurse Practitioner; Visit Provider Orthopaedic Surgery
PROC: (CPT 29870; principal; 2025-08-25 07:30)
DX: S83.231A Complex tear of medial meniscus, current injury, right knee, initial encounter (principal); M94.261 Chondromalacia, right knee; M65.861 Other synovitis and tenosynovitis, right lower leg; I10 Essential (primary) hypertension; X50.1XXA Overexertion from prolonged static or awkward postures, initial encounter; E66.01 Morbid (severe) obesity due to excess calories; Z68.43 Body mass index [BMI] 50.0-59.9, adult; Z79.1 Long term (current) use of non-steroidal anti-inflammatories (NSAID); Z79.899 Other long term (current) drug therapy; Z98.890 Other specified postprocedural states; Z90.49 Acquired absence of other specified parts of digestive tract; Z98.51 Tubal ligation status; Z82.49 Family history of ischemic heart disease and other diseases of the circulatory system
CPT/HCPCS: 29881; 29876; 36415; 80048; A9270; J0690; J1100; J1596; J2003; J2405; J2704; J3010; J7120